=== PATIENT | female | born 1935 | race Caucasian/White ===

== ENCOUNTER → 2016-10-01 06:23 | Day surgery (SDC) | payer MEDICARE, OTHER ==
[2016-09-30 13:53] LABS: BASOPHILS 0.3 % (0-2); EOSINOPHILS 1.9 % (0-7); HEMATOCRIT 43.5 % (36.0-48.0); HEMOGLOBIN 15.4 g/dL (12-16); IMMATURE GRANULOCYTES 0.3 % (0-5); MCH 30.3 pg (26.0-34.0); MCHC 35.4 g/dL (31.0-37.0); MCV 85.5 fL (80.0-100.0); MEAN PLATELET VOLUME 9.7 fL (7.4-10.4); MONOCYTES 10.5 % (2-11); PLATELET COUNT 208 10x3/uL (130-400); RBC 5.09 10x6/uL (4.00-5.40); RDW 13.4 % (11.5-14.5); WBC 5.8 10x3/uL (4.8-10.8)
[2016-09-30 14:10] LABS: CALCIUM 9.7 mg/dL (8.5-10.1); CARBON DIOXIDE 28.9 mmol/L (21.0-32.0); CREATININE - SERUM 0.8 mg/dL (0.6-1.3); POTASSIUM - SERUM 3.9 mmol/L (3.5-5.1)
[~2016-10-01] VITALS: Ht 167.6 cm; Wt 64.4 kg
[~2016-10-01 06:23] MED LIST: ALEVE220 MG PO; CYCLOBENZAPRINE10 MG PO; DILAUDID2 MG PO; NORVASC10 MG PO
[2016-10-01 07:42] VITALS: BP 133/85; Ht 167.6 cm; Wt 64.4 kg
--- NOTE | 2016-10-01 12:40 | NUR ---
CONSULTED DR SANCHEZ AT 1140 REGARDING LOW HEART RATE. RECEIVED VERBAL ORDER TO GIVE ROBINOL 0.4MG IV X1 DOSE.
--- NOTE | 2016-10-01 14:32 | NUR ---
1355 PT ESCORTED OUT BY VOLUNTEER
== END | disposition home or self-care (01) ==
LOC: D.OPS 06:23 → D.PAN 12:00 → D.OPS 13:15 → D.PAN 13:15
PROVIDERS: Surgery
DX: K43.9 Ventral hernia without obstruction or gangrene (principal); I10 Essential (primary) hypertension; K21.9 Gastro-esophageal reflux disease without esophagitis; R94.31 Abnormal electrocardiogram [ECG] [EKG]; I44.7 Left bundle-branch block, unspecified; Z01.812 Encounter for preprocedural laboratory examination